=== PATIENT | female | born 1980 | race Caucasian/White ===

== ENCOUNTER 2018-03-10 02:38 | Emergency (ER) | payer OTHER, BC ==
--- NOTE | 2018-03-10 02:50 | EDM.PDOC ---
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 Review of systems: As per history of present illness and below otherwise all systems reviewed and negative. Past medical history: As per history of present illness and as reviewed below otherwise noncontributory. Surgical history: As per history of present illness and as reviewed below otherwise noncontributory. Social history: No reported history of drug or alcohol abuse. Family history: As per history of present illness and as reviewed below otherwise noncontributory. Physical exam: HEENT: Small scalp hematoma noted frontal scalp laceration no step-off no depression, normocephalic, pupils reactive, negative for conjunctival pallor or scleral icterus, mucous membranes moist, throat clear, neck supple, nontender, trachea midline. Lungs: Clear to auscultation, breath sounds equal bilaterally, chest nontender. Heart: S1S2, regular, negative for clicks, rubs, or JVD. Abdomen: Soft, nondistended, nontender. Negative for masses or hepatosplenomegaly. Negative for costovertebral tenderness. Pelvis: Stable nontender. Genitourinary: Deferred. Rectal: Deferred. Extremities: Atraumatic, negative for cords or calf pain. Neurovascular unremarkable. Neuro: Awake, alert, oriented. Cranial nerves II through XII unremarkable. Cerebellum unremarkable. Motor and sensory unremarkable throughout. Exam nonfocal. Diagnostics: None Therapeutics: None Impression: #1 minor head injury with scalp hematoma Definitive disposition and diagnosis as appropriate pending reevaluation and review of above. 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: Musculoskeletal History: Reports: None Neurological History: Reports: None Psychiatric History: Reports: Anxiety, Depression Endocrine/Metabolic History: Reports: None Hematologic History: Reports: None Immunologic History: Reports: None Oncologic (Cancer) History: Reports: None Dermatologic History: Reports: None - Infectious Disease History Infectious Disease History: Reports: Chicken Pox - Past Surgical History Female Surgical History: Reports: Section Social & Family History - Family History Cardiac: Reports: CAD ED ROS GENERAL - Review of Systems Review Of Systems: ROS reveals no pertinent complaints other than HPI. ED EXAM, HEAD INJURY - Physical Exam Exam: See Below (The dictation) Departure - Departure Time of Disposition: 02:49 Disposition: Home, Self-Care 01 Condition: Good Clinical Impression: Head injury - Discharge Information Referrals: Charmaine Leach DO [Primary Care Provider] - Additional Instructions: The following information is given to patients seen in the emergency department who are being discharged to home. This information is to outline your options for follow-up care. We provide all patients seen in our emergency department with a follow-up referral. The need for follow-up, as well as the timing and circumstances, are variable depending upon the specifics of your emergency department visit. If you don't have a primary care physician on staff, we will provide you with a referral. We always advise you to contact your personal physician following an emergency department visit to inform them of the circumstance of the visit and for follow-up with them and/or the need for any referrals to a consulting specialist. The emergency department will also refer you to a specialist when appropriate. This referral assures that you have the opportunity for followup care with a specialist. All of these measure are taken in an effort to provide you with optimal care, which includes your followup. Under all circumstances we always encourage you to contact your private physician who remains a resource for coordinating your care. When calling for followup care, please make the office aware that this follow-up is from your recent emergency room visit. If for any reason you are refused follow-up, please contact the [facility] emergency department at and asked to speak to the emergency department charge angel Follow-up primary medical doctor and/or occupational medicine as needed as discussed and return as needed as discussed Motrin/Tylenol as directed. []
[2018-03-10 03:18] VITALS: BP 157/86
== END 2018-03-10 03:10 | disposition home or self-care (01) ==
LOC: MW.ED 02:38
DX: S09.90XA Unspecified injury of head, initial encounter (principal); S00.03XA Contusion of scalp, initial encounter; W22.8XXA Striking against or struck by other objects, initial encounter
CPT/HCPCS: 99283

== ENCOUNTER 2018-06-16 10:24 | Emergency (ER) | payer BC ==
[2018-06-16] MEDS ORDERED: Sodium Chloride 0.9% 1,000 ML IV ONE (10:27)
--- NOTE | 2018-06-16 10:27 | EDM.PDOC ---
ED HPI GENERAL MEDICAL PROBLEM - General Stated Complaint: AMB Time Seen by Provider: 06/16/18 10:26 Source of Information: Reports: Patient History Limitations: Reports: No Limitations - History of Present Illness INITIAL COMMENTS - FREE TEXT/NARRATIVE: HISTORY AND PHYSICAL: History of present illness: Patient is a 37-year-old female who presents to the emergency room today with complaints of syncopal episode. 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 She states she had been feeling well. She had finished smoking a cigarette in her bathroom and had started making her way back into the kitchen when she started to feel weak. Patient states that she had a strange "cool and tingling sensation" to her body and scalp. She informed her that "I don't feel right" and requested he call EMS. She had the urge to defecate and emesis, followed by syncope from standing height. She had fallen onto the kitchen floor. Her states that she immediately was talking after falling to the ground. Patient states that " it was foggy" immediately and directly after the syncopal event. She denies any urinary incontinence but did have a small streak of loose stool in her underwear. She currently denies any pain, headache, change in vision or dizziness. She denies any fever, chills, chest pain, shortness of breath or cough. Denies any GI or symptoms. Denies any chance of , Tubal ligation. Patient has a past medical history of hypertension, depression, and anxiety. Review of systems: As per history of present illness and below otherwise all systems reviewed and negative. Past medical history: As per history of present illness and as reviewed below otherwise noncontributory. Surgical history: As per history of present illness and as reviewed below otherwise noncontributory. Social history: No reported history of drug or alcohol abuse. Family history: As per history of present illness and as reviewed below otherwise noncontributory. Physical exam: General: Well-developed and well-nourished 37-year-old female. Alert and oriented. Nontoxic appearing and in no acute distress. HEENT: Atraumatic, normocephalic, pupils equal and reactive bilaterally, negative for conjunctival pallor or scleral icterus, mucous membranes moist, throat clear, neck supple, nontender, trachea midline. No drooling or trismus noted. No meningeal signs Lungs: Clear to auscultation, breath sounds equal bilaterally, chest nontender. Heart: S1S2, regular rate and rhythm without overt murmur Abdomen: Soft, nondistended, nontender. Negative for masses or hepatosplenomegaly. Negative for costovertebral tenderness. Pelvis: Stable nontender. Genitourinary: Deferred. Rectal: Deferred. Skin: Intact, warm, dry. No lesions or rashes noted. Extremities: Atraumatic, negative for cords or calf pain. Neurovascular unremarkable. C-spine/Back: No pinpoint vertebral tenderness upon palpation. No crepitus, step -offs or obvious deformities. Patient is ambulatory with an even and steady gait. Eyes any numbness or tingling to her distal extremities. Neuro: Awake, alert, oriented. Cranial nerves II through XII unremarkable. Cerebellum unremarkable. Motor and sensory unremarkable throughout. Exam nonfocal. Notes: Patient is alert and oriented. She is agreeable to performing routine lab work along with the head CT. She currently denies any pain or symptoms at this time. Signs are stable. We'll continue to monitor. To returning to the room after her CT scan she does state she has a dull headache and mild nausea. Medications ordered at this time. Labs show that her potassium is 3.0. Patient was seen earlier this month and did have a potassium of 3.1 at this time. I did give her 40 mEq of K-Dur while here. We discussed the need for appropriate follow-up as her lisinopril/HCTZ medication may be causing her potassium depletion. Head CT shows no acute intracranial abnormalities. Reviewing her past visit in the ER a couple days ago, she was seen for palpitations and chest pain. At that time she was suggested to get a Holter/glass carrier as an outpatient. We did discuss the need for follow-up for not only her low potassium but her other health problems. She has denied any chest pain or palpitations while here in the emergency room. She states "this is been fine". Patient will be discharged to home with her prescription. We discussed signs and symptoms that would prompt her to return to the emergency room. She voices understanding and is agreeable to plan of care. Denies any further questions or concerns at this time. Diagnostics: CBC, CMP, UA, hCGU, EKG, Head CT Therapeutics: IV fluid, Toradol, Zofran Prescription: K-Dur (#20) Impression: Syncope Hypokalemia Plan: 1. Please take the remainder of the day to rest. Drink plenty of fluids. Small frequent meals. 2. Your potassium was low today. I did give you a potassium supplement able to be re-evaluated by her primary care provider. Your lisinopril/HCTZ medication may be causing the low potassium level. This may need to be adjusted or the may need to be placed on potassium replacement (per your primary care provider). Please make an appointment next week for follow-up care. 3. At your last visit they had recommended you get a cardiac/Holter monitor. If you have not already please set this up with your primary care provider as we discussed. 4. Tylenol and/or ibuprofen as needed for pain management. 5. Return to the ED as needed and as discussed. Definitive disposition and diagnosis as appropriate pending reevaluation and review of above. Onset: Today Duration: Minutes: - Related Data Allergies Allergy/AdvReac Type Severity Reaction Status Date / Time No Known Allergies Allergy Verified 06/16/18 10:29 Home Meds: Home Meds Lisinopril/Hydrochlorothiazide [Lisinopril-HCTZ 10-12.5 MG] 1 tab PO DAILY 06/16 [History] hydrOXYzine HCl [hydrOXYzine] 25 mg PO Q8HR 06/16/18 [History] Past Medical History HEENT History: Reports: Impaired Vision Cardiovascular History: Reports: None Respiratory History: Reports: Other (See Below) Other Respiratory History: Bronchitis Gastrointestinal History: Reports: GERD Genitourinary History: Reports: None 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: Musculoskeletal History: Reports: None Neurological History: Reports: None Psychiatric History: Reports: Anxiety, Depression Endocrine/Metabolic History: Reports: None Hematologic History: Reports: None Immunologic History: Reports: None Oncologic (Cancer) History: Reports: None Dermatologic History: Reports: None - Infectious Disease History Infectious Disease History: Reports: Chicken Pox - Past Surgical History Head Surgeries/Procedures: Reports: None Female Surgical History: Reports: Section Social & Family History - Family History Family Medical History: Noncontributory Cardiac: Reports: CAD - Caffeine Use Caffeine Use: Reports: None ED ROS GENERAL - Review of Systems Review Of Systems: ROS reveals no pertinent complaints other than HPI. ED EXAM, GENERAL - Physical Exam Exam: See Below (See dictation) Course - Vital Signs Last Recorded V/S: Last Vital Signs Temp 97.1 F 06/16/18 10:32 Pulse 90 06/16/18 10:32 Resp 19 06/16/18 10:32 BP 115/75 06/16/18 10:32 Pulse Ox 98 06/16/18 10:32 - Orders/Labs/Meds Orders: Active Orders 24 hr Category Date Time Status EKG Documentation Completion [RC] STAT Care 06/16/18 10:27 Active Orthostatic Vital Signs [RC] ASDIRECTED Care 06/16/18 10:27 Active Head wo Cont [CT] Stat Exams 06/16/18 10:27 Taken Labs: Laboratory Tests 06/16/18 06/16/18 06/16/18 Range/Units 10:26 10:26 11:00 WBC 14.16 H (4.0-11.0) K/uL RBC 4.50 (4.30-5.90) M/uL Hgb 14.1 (12.0-16.0) g/dL Hct 39.5 (36.0-46.0) % MCV 87.8 (80.0-98.0) fL MCH 31.3 (27.0-32.0) pg MCHC 35.7 (31.0-37.0) g/dL RDW Std Deviation 40.7 (28.0-62.0) fl RDW Coeff of Solomon 13 (11.0-15.0) % Plt Count 329 (150-400) K/uL MPV 8.80 (7.40-12.00) fL Neut % (Auto) 61.2 (48.0-80.0) % Lymph % (Auto) 29.2 (16.0-40.0) % [place] % (Auto) 6.4 (0.0-15.0) % Eos % (Auto) 2.7 (0.0-7.0) % Baso % (Auto) 0.5 (0.0-1.5) % Neut # (Auto) 8.7 H (1.4-5.7) K/uL Lymph # (Auto) 4.1 H (0.6-2.4) K/uL [place] # (Auto) 0.9 H (0.0-0.8) K/uL Eos # (Auto) 0.4 (0.0-0.7) K/uL Baso # (Auto) 0.1 (0.0-0.1) K/uL Nucleated RBC % 0.0 /100WBC Nucleated RBCs # 0 K/uL Sodium 137 (136-145) mmol/L Potassium 3.0 L (3.5-5.1) mmol/L Chloride 102 (98-107) mmol/L Carbon Dioxide 26.3 (21.0-32.0) mmol/L BUN 11 (7.0-18.0) mg/dL Creatinine 0.9 (0.6-1.0) mg/dL Est Cr Clr Drug Dosing 69.00 mL/min Estimated GFR (MDRD) > 60.0 ml/min Glucose 134 H (74-106) mg/dL Calcium 9.2 (8.5-10.1) mg/dL Total Bilirubin 0.3 (0.2-1.0) mg/dL AST 13 L (15-37) IU/L ALT 35 (14-63) IU/L Alkaline Phosphatase 72 (46-116) U/L Total Protein 7.2 (6.4-8.2) g/dL Albumin 3.8 (3.4-5.0) g/dL Globulin 3.4 (2.0-3.5) g/dL Albumin/Globulin Ratio 1.1 L (1.3-2.8) Urine Color YELLOW Urine Appearance CLEAR Urine pH 6.0 (5.0-8.0) Ur Specific [place] 1.015 (1.001-1.035) Urine Protein NEGATIVE (NEGATIVE) mg/dL Urine Glucose (UA) NEGATIVE (NEGATIVE) mg/dL Urine Ketones NEGATIVE (NEGATIVE) mg/dL Urine Occult Blood NEGATIVE (NEGATIVE) Urine Nitrite NEGATIVE (NEGATIVE) Urine Bilirubin NEGATIVE (NEGATIVE) Urine Urobilinogen 0.2 (<2.0) EU/dL Ur Leukocyte Esterase NEGATIVE (NEGATIVE) Urine RBC 0-1 (0-2/HPF) Urine WBC 0-2 (0-5/HPF) Ur Epithelial Cells RARE (NONE-FEW) Urine Bacteria RARE (NEGATIVE) Urine HCG, Qual (NEGATIVE) 06/16/18 Range/Units 11:00 WBC (4.0-11.0) K/uL RBC (4.30-5.90) M/uL Hgb (12.0-16.0) g/dL Hct (36.0-46.0) % MCV (80.0-98.0) fL MCH (27.0-32.0) pg MCHC (31.0-37.0) g/dL RDW Std Deviation (28.0-62.0) fl RDW Coeff of Solomon (11.0-15.0) % Plt Count (150-400) K/uL MPV (7.40-12.00) fL Neut % (Auto) (48.0-80.0) % Lymph % (Auto) (16.0-40.0) % [place] % (Auto) (0.0-15.0) % Eos % (Auto) (0.0-7.0) % Baso % (Auto) (0.0-1.5) % Neut # (Auto) (1.4-5.7) K/uL Lymph # (Auto) (0.6-2.4) K/uL [place] # (Auto) (0.0-0.8) K/uL Eos # (Auto) (0.0-0.7) K/uL Baso # (Auto) (0.0-0.1) K/uL Nucleated RBC % /100WBC Nucleated RBCs # K/uL Sodium (136-145) mmol/L Potassium (3.5-5.1) mmol/L Chloride (98-107) mmol/L Carbon Dioxide (21.0-32.0) mmol/L BUN (7.0-18.0) mg/dL Creatinine (0.6-1.0) mg/dL Est Cr Clr Drug Dosing mL/min Estimated GFR (MDRD) ml/min Glucose (74-106) mg/dL Calcium (8.5-10.1) mg/dL Total Bilirubin (0.2-1.0) mg/dL AST (15-37) IU/L ALT (14-63) IU/L Alkaline Phosphatase (46-116) U/L Total Protein (6.4-8.2) g/dL Albumin (3.4-5.0) g/dL Globulin (2.0-3.5) g/dL Albumin/Globulin Ratio (1.3-2.8) Urine Color Urine Appearance Urine pH (5.0-8.0) Ur Specific [place] (1.001-1.035) Urine Protein (NEGATIVE) mg/dL Urine Glucose (UA) (NEGATIVE) mg/dL Urine Ketones (NEGATIVE) mg/dL Urine Occult Blood (NEGATIVE) Urine Nitrite (NEGATIVE) Urine Bilirubin (NEGATIVE) Urine Urobilinogen (<2.0) EU/dL Ur Leukocyte Esterase (NEGATIVE) Urine RBC (0-2/HPF) Urine WBC (0-5/HPF) Ur Epithelial Cells (NONE-FEW) Urine Bacteria (NEGATIVE) Urine HCG, Qual NEGATIVE (NEGATIVE) Meds: Medications Discontinued Medications Generic Name Dose Route Start Last Admin Trade Name Donavanq PRN Reason Stop Dose Admin Sodium Chloride 1,000 mls @ 999 mls/hr 06/16/18 10:27 06/16/18 10:30 Normal Saline IV 06/16/18 11:27 999 mls/hr STAT ONE Administration Ketorolac Tromethamine 30 mg 06/16/18 10:58 06/16/18 11:06 Toradol IVPUSH 06/16/18 10:59 30 mg ONETIME ONE Administration Ondansetron HCl 4 mg 06/16/18 10:58 Zofran IVPUSH 06/16/18 10:59 ONETIME ONE Potassium Chloride 40 meq 06/16/18 11:12 06/16/18 11:19 Klor-Con M20 PO 06/16/18 11:13 40 meq ONETIME ONE Administration Departure - Departure Time of Disposition: 11:43 Disposition: Home, Self-Care 01 Clinical Impression: Hypokalemia Syncope Qualifiers: Syncope type: unspecified Qualified Code(s): R55 - Syncope and collapse - Discharge Information Instructions: Hypokalemia, Syncope, [id number] Referrals: PCP,None [Primary Care Provider] - Additional Instructions: The following information is given to patients seen in the emergency department who are being discharged to home. This information is to outline your options for follow-up care. We provide all patients seen in our emergency department with a follow-up referral. The need for follow-up, as well as the timing and circumstances, are variable depending upon the specifics of your emergency department visit. If you don't have a primary care physician on staff, we will provide you with a referral. We always advise you to contact your personal physician following an emergency department visit to inform them of the circumstance of the visit and for follow-up with them and/or the need for any referrals to a consulting specialist. The emergency department will also refer you to a specialist when appropriate. This referral assures that you have the opportunity for follow-up care with a specialist. All of these measure are taken in an effort to provide you with optimal care, which includes your follow-up. Under all circumstances we always encourage you to contact your private physician who remains a resource for coordinating your care. When calling for follow-up care, please make the office aware that this follow-up is from your recent emergency room visit. If for any reason you are refused follow-up, please contact the [facility] Emergency Department at and asked to speak to the emergency department charge nurse. [facility] [address] [place] [id number] [facility] [address] [place] [address] 1. Please take the remainder of the day to rest. Drink plenty of fluids. Small frequent meals. 2. Your potassium was low today. I did give you a potassium supplement able to be re-evaluated by her primary care provider. Your lisinopril/HCTZ medication may be causing the low potassium level. This may need to be adjusted or the may need to be placed on potassium replacement (per your primary care provider). Please make an appointment next week for follow-up care. 3. At your last visit they had recommended you get a cardiac/Holter monitor. If you have not already please set this up with your primary care provider as we discussed. 4. Tylenol and/or ibuprofen as needed for pain management. 5. Return to the ED as needed and as discussed. - My Orders Last 24 Hours: My Active Orders 06/16/18 10:27 EKG Documentation Completion [RC] STAT Orthostatic Vital Signs [RC] ASDIRECTED Head wo Cont [CT] Stat - Assessment/Plan Last 24 Hours: My Active Orders 06/16/18 10:27 EKG Documentation Completion [RC] STAT Orthostatic Vital Signs [RC] ASDIRECTED Head wo Cont [CT] Stat
[2018-06-16 10:33] VITALS: BP 115/75
[2018-06-16] MEDS ORDERED: Ketorolac 30 MG/ML SDV IVPUSH ONE (10:58)
[2018-06-16] MEDS ORDERED: Ondansetron 4 MG/2 ML SDV IVPUSH ONE (10:58)
[2018-06-16 11:00] LABS: CHLORIDE,CL 102 mmol/L (98-107); SODIUM,NA 137 mmol/L (136-145)
[2018-06-16] MEDS ORDERED: Potassium Chloride 20 MEQ Tab.ER PO ONE (11:12)
--- NOTE | 2018-06-18 09:46 | CT ---
EXAM DATE: 06/16/18 PATIENT'S AGE: 37 Patient: RED ALARCON Facility: [place], [place] Site . Site : [id number] Study: CT Head [id number]/[id number] 10:57:22 AM Ordering Physician: Doctor Granados Final Report: INDICATION: Dizziness. TECHNIQUE: [place] CT of the head without contrast. FINDINGS: Normal brain parenchymal morphology. No intracranial hemorrhage, focal edema, mass effect, or fracture. No midline shift. No abnormal ventricular dilatation. Pineal gland calcifications Normal calvarium and skull base. Visualized paranasal sinuses and mastoid air cells are clear. Visualized orbits are unremarkable. IMPRESSION: 1. No acute intracranial abnormality. 2. Normal brain parenchymal morphology Please note that all CT scans at this facility use dose modulation, iterative reconstruction, and/or weight-based dosing when appropriate to reduce radiation dose to as low as reasonably achievable. Dictated by Ken Mejias MD @ Jun 16 2018 10:58AM (Electronic Signature) Report Signed by Proxy. MTDD
== END 2018-06-16 12:05 | disposition home or self-care (01) ==
LOC: MW.ED 10:24
DX: R55 Syncope and collapse (principal); E87.6 Hypokalemia; Z79.899 Other long term (current) drug therapy
CPT/HCPCS: 36415; 70450; 80053; 81001; 81025; 85025; 93005; 96361; 96374; 96375; 99285; A9270; J1885; J7040

== ENCOUNTER 2021-09-13 13:31 | Emergency (ER) | payer SELFPAY ==
[2021-09-13] MEDS ORDERED: Ondansetron 4 MG Tab.DIS ONE (13:42)
[2021-09-13] MEDS ORDERED: Ondansetron 4 MG Tab.DIS PO ONE (13:45)
--- NOTE | 2021-09-13 13:57 | EDM.PDOC ---
ED HPI GENERAL MEDICAL PROBLEM - General Chief Complaint: Abdominal Pain Stated Complaint: ABDOMINAL PAIN,VOMMITNG Time Seen by Provider: 09/13/21 13:55 Source of Information: Reports: Patient - History of Present Illness INITIAL COMMENTS - FREE TEXT/NARRATIVE: Presents complaining of nausea vomiting and diarrhea since June. It is worse over the last several days to week. Patient denies any recent antibiotics. She denies any recent sick contacts or travel outside the country. No undercooked foods. She states she has getting over cough and cold that has been going around at work. Patient has not seen her doctor for this as of yet. She is complaining of diffuse 6 out of 10 abdominal pain. 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: NSAIDS, Other (see below) Other Treatments SERVICE INSPECTOR: sudafed abdomen Pain Score (Numeric/FACES): 6 - Related Data Allergies Allergy/AdvReac Type Severity Reaction Status Date / Time No Known Allergies Allergy Verified 09/13/21 13:38 Home Meds: Home Meds LORazepam [Ativan] 0.5 mg PO Q12H PRN 09/13/21 [History] Ondansetron [Zofran ODT] 4 mg PO Q6H PRN #10 tab.dis 09/13/21 [Rx] Past Medical History HEENT History: Reports: Impaired Vision Cardiovascular History: Reports: None Respiratory History: Reports: Other (See Below) Other Respiratory History: Bronchitis Gastrointestinal History: Reports: GERD Genitourinary History: Reports: None MICA SPREADER History: Reports: Musculoskeletal History: Reports: None Neurological History: Reports: None Psychiatric History: Reports: Anxiety, Depression Endocrine/Metabolic History: Reports: None Hematologic History: Reports: None Immunologic History: Reports: None Oncologic (Cancer) History: Reports: None Dermatologic History: Reports: None - Infectious Disease History Infectious Disease History: Reports: Chicken Pox - Past Surgical History Head Surgeries/Procedures: Reports: None HEENT Surgical History: Reports: None Cardiovascular Surgical History: Reports: None Respiratory Surgical History: Reports: None GI Surgical History: Reports: None Female Surgical History: Reports: Section Endocrine Surgical History: Reports: None Neurological Surgical History: Reports: None Musculoskeletal Surgical History: Reports: None Oncologic Surgical History: Reports: None Dermatological Surgical History: Reports: None Social & Family History - Family History Family Medical History: No Pertinent Family History Cardiac: Reports: CAD - Tobacco Use Tobacco Use Status *Q: Current Every Day Tobacco User Years of Tobacco use: 1 Packs/Tins Daily: 1 - Caffeine Use Caffeine Use: Reports: Coffee - Recreational Drug Use Recreational Drug Use: Yes Drug Use in Last 12 Months: Yes Recreational Drug Type: Reports: Cocaine, Marijuana/Hashish Recreational Drug Use Frequency: Weekly ED ROS GENERAL - Review of Systems Review Of Systems: See Below ED EXAM, GENERAL - Physical Exam Exam: See Below Free Text/Narrative:: CONSTITUTIONAL: well appearing in no acute distress SKIN: dry, and intact without rash HENT: Normocephalic, atraumatic, NECK: normal range of motion PULMONARY: normal chest rise and fall, no respiratory distress or stridor NEUROLOGIC: normal speech, moves all extremities, grossly non-focal GI: Soft, mild epigastric and midline mid abdominal tenderness. No guarding or rebound or rigidity MUSCULOSKELETAL: no gross deformities, atraumatic PSYCHIATRIC: normal mood and affect Course - Vital Signs Text/Narrative:: Gastroenteritis, foodborne illness, CHF, early small bowel obstruction, acute cholecystitis, other She presents with vomiting and diarrhea. Patient's had copious amounts of diarrhea she states. She has a mild leukocytosis but the laboratory testing is otherwise relatively reassuring. Abdomen does have some mild tenderness but is otherwise soft and benign. Patient will be given Zofran and told to take Imodium at home and she already has a follow-up appoint with her primary care doctor tomorrow at 10 AM she states Last Recorded V/S: Last Vital Signs Temp 36.6 C 09/13/21 13:39 Pulse 89 09/13/21 13:39 Resp 18 09/13/21 13:39 BP 121/82 09/13/21 13:39 Pulse Ox 95 09/13/21 13:39 - Orders/Labs/Meds Orders: Active Orders 24 hr Category Date Time Status COVID-19/FLU A+B [MOLEC] Stat Lab 09/13/21 14:21 Received Labs: Laboratory Tests 09/13/21 09/13/21 09/13/21 Range/Units 13:51 13:51 14:00 WBC 13.05 H (4.0-11.0) K/uL RBC 4.64 (4.30-5.90) M/uL Hgb 14.2 (12.0-16.0) g/dL Hct 41.4 (36.0-46.0) % MCV 89.2 (80.0-98.0) fL MCH 30.6 (27.0-32.0) pg MCHC 34.3 (31.0-37.0) g/dL RDW Std Deviation 43.2 (28.0-62.0) fl RDW Coeff of Solomon 13 (11.0-15.0) % Plt Count 418 H (150-400) K/uL MPV 8.80 (7.40-12.00) fL Neut % (Auto) 83.6 H (48.0-80.0) % Lymph % (Auto) 10.3 L (16.0-40.0) % [place] % (Auto) 4.8 (0.0-15.0) % Eos % (Auto) 1.1 (0.0-7.0) % Baso % (Auto) 0.2 (0.0-1.5) % Neut # (Auto) 10.9 H (1.4-5.7) K/uL Lymph # (Auto) 1.4 (0.6-2.4) K/uL [place] # (Auto) 0.6 (0.0-0.8) K/uL Eos # (Auto) 0.2 (0.0-0.7) K/uL Baso # (Auto) 0.0 (0.0-0.1) K/uL Nucleated RBC % 0.0 /100WBC Nucleated RBCs # 0 K/uL Sodium (136-145) mmol/L Potassium (3.5-5.1) mmol/L Chloride (98-107) mmol/L Carbon Dioxide (21.0-32.0) mmol/L BUN (7.0-18.0) mg/dL Creatinine (0.6-1.0) mg/dL Est Cr Clr Drug Dosing mL/min Estimated GFR (MDRD) ml/min Glucose (74-106) mg/dL Calcium (8.5-10.1) mg/dL Total Bilirubin (0.2-1.0) mg/dL AST (15-37) IU/L ALT (14-63) IU/L Total Protein (6.4-8.2) g/dL Albumin (3.4-5.0) g/dL Globulin (2.6-4.0) g/dL Albumin/Globulin Ratio (0.9-1.6) Lipase (73-393) U/L Urine Color YELLOW Urine Appearance CLEAR Urine pH 6.0 (5.0-8.0) Ur Specific [place] 1.025 (1.001-1.035) Urine Protein NEGATIVE (NEGATIVE) mg/dL Urine Glucose (UA) NEGATIVE (NEGATIVE) mg/dL Urine Ketones NEGATIVE (NEGATIVE) mg/dL Urine Occult Blood NEGATIVE (NEGATIVE) Urine Nitrite NEGATIVE (NEGATIVE) Urine Bilirubin NEGATIVE (NEGATIVE) Urine Urobilinogen 0.2 (<2.0) EU/dL Ur Leukocyte Esterase NEGATIVE (NEGATIVE) Urine HCG, Qual NEGATIVE (NEGATIVE) 09/13/21 Range/Units 14:00 WBC (4.0-11.0) K/uL RBC (4.30-5.90) M/uL Hgb (12.0-16.0) g/dL Hct (36.0-46.0) % MCV (80.0-98.0) fL MCH (27.0-32.0) pg MCHC (31.0-37.0) g/dL RDW Std Deviation (28.0-62.0) fl RDW Coeff of Solomon (11.0-15.0) % Plt Count (150-400) K/uL MPV (7.40-12.00) fL Neut % (Auto) (48.0-80.0) % Lymph % (Auto) (16.0-40.0) % [place] % (Auto) (0.0-15.0) % Eos % (Auto) (0.0-7.0) % Baso % (Auto) (0.0-1.5) % Neut # (Auto) (1.4-5.7) K/uL Lymph # (Auto) (0.6-2.4) K/uL [place] # (Auto) (0.0-0.8) K/uL Eos # (Auto) (0.0-0.7) K/uL Baso # (Auto) (0.0-0.1) K/uL Nucleated RBC % /100WBC Nucleated RBCs # K/uL Sodium 139 (136-145) mmol/L Potassium 3.4 L (3.5-5.1) mmol/L Chloride 105 (98-107) mmol/L Carbon Dioxide 26.4 (21.0-32.0) mmol/L BUN 17 (7.0-18.0) mg/dL Creatinine 0.7 (0.6-1.0) mg/dL Est Cr Clr Drug Dosing 81.42 mL/min Estimated GFR (MDRD) > 60.0 ml/min Glucose 89 (74-106) mg/dL Calcium 9.0 (8.5-10.1) mg/dL Total Bilirubin 0.4 (0.2-1.0) mg/dL AST 12 L (15-37) IU/L ALT 28 (14-63) IU/L Total Protein 7.6 (6.4-8.2) g/dL Albumin 3.7 (3.4-5.0) g/dL Globulin 3.9 (2.6-4.0) g/dL Albumin/Globulin Ratio 0.9 (0.9-1.6) Lipase 88 (73-393) U/L Urine Color Urine Appearance Urine pH (5.0-8.0) Ur Specific [place] (1.001-1.035) Urine Protein (NEGATIVE) mg/dL Urine Glucose (UA) (NEGATIVE) mg/dL Urine Ketones (NEGATIVE) mg/dL Urine Occult Blood (NEGATIVE) Urine Nitrite (NEGATIVE) Urine Bilirubin (NEGATIVE) Urine Urobilinogen (<2.0) EU/dL Ur Leukocyte Esterase (NEGATIVE) Urine HCG, Qual (NEGATIVE) Meds: Medications Discontinued Medications Generic Name Dose Route Start Last Admin Trade Name Caio PRN Reason Stop Dose Admin Loperamide HCl 4 mg 09/13/21 14:03 09/13/21 14:10 Loperamide 2 Mg Cap PO 09/13/21 14:04 4 mg NOW STA Administration Ondansetron HCl 4 mg 09/13/21 13:45 09/13/21 13:46 Ondansetron 4 Mg Tab.Dis PO 09/13/21 13:46 4 mg ONETIME ONE Administration Ondansetron HCl Confirm 09/13/21 13:42 09/13/21 14:14 Ondansetron 4 Mg Tab.Dis Administered 09/13/21 13:43 Not Given Dose 4 mg .ROUTE .STK-MED ONE Departure - Departure Time of Disposition: 15:09 Disposition: Home, Self-Care 01 Condition: Good Clinical Impression: Diarrhea - Discharge Information Instructions: Diarrhea, Adult Forms: ED Department Discharge Additional Instructions: Zofran as prescribed for vomiting and Imodium [id number] for diarrhea. Return for lack of urination, inability to tolerate fluids, increasing abdominal pain, change or worsening condition. Follow-up with your primary care doctor tomorrow as scheduled for reevaluation. Sepsis Event Note (ED) - Evaluation Sepsis Screening Result: No Definite Risk - Focused Exam Vital Signs: Vital Signs Temp Pulse Resp BP Pulse Ox 09/13/21 13:39 36.6 C 89 18 121/82 95 - My Orders Last 24 Hours: My Active Orders 09/13/21 14:21 COVID-19/FLU A+B [MOLEC] Stat - Assessment/Plan Last 24 Hours: My Active Orders 09/13/21 14:21 COVID-19/FLU A+B [MOLEC] Stat
[2021-09-13] MEDS ORDERED: Loperamide 2 MG Cap PO STA (14:03)
[2021-09-13 14:57] LABS: BLOOD UREA NITROGEN,BUN 17 mg/dL (7.0-18.0); CARBON DIOXIDE,CO2 26.4 mmol/L (21.0-32.0); CHLORIDE,CL 105 mmol/L (98-107); GLUCOSE RANDOM 89 mg/dL (74-106); LIPASE 88 U/L (73-393); POTASSIUM,K 3.4 mmol/L (3.5-5.1); SODIUM,NA 139 mmol/L (136-145)
[2021-09-13 15:13] LABS: CORONAVIRUS COVID-19 NAA NEGATIVE (NEGATIVE); INFLUENZA A NAA NEGATIVE (NEGATIVE); INFLUENZA B NAA NEGATIVE (NEGATIVE)
[2021-09-13 15:25] VITALS: BP 127/69; PULSE 81
== END 2021-09-13 15:26 | disposition home or self-care (01) ==
LOC: MW.ED 13:31
DX: R19.7 Diarrhea, unspecified (principal); Z72.0 Tobacco use; Z20.822 Contact with and (suspected) exposure to COVID-19
CPT/HCPCS: 0240U; 36415; 80053; 81003; 81025; 83690; 85025; 99284; A9270

== ENCOUNTER 2022-08-28 13:33 | Emergency (ER) | payer BC ==
[2022-08-28] MEDS ORDERED: Sodium Chloride 0.9% 10 ML Syringe FLUSH PRN (13:59)
[2022-08-28] MEDS ORDERED: Sodium Chloride 0.9% 2.5 ML Syringe FLUSH PRN (13:59)
[2022-08-28 14:57] LABS: CARBON DIOXIDE,CO2 24.1 mmol/L (21.0-32.0); POTASSIUM,K 3.5 mmol/L (3.5-5.1)
[2022-08-28 15:42] VITALS: BP 112/54; PULSE 88
== END 2022-08-28 15:40 | disposition home or self-care (01) ==
LOC: MW.ED 13:33
DX: I10 Essential (primary) hypertension (principal); Z79.899 Other long term (current) drug therapy
CPT/HCPCS: 36415; 80053; 84484; 85025; 93005; 99285; J3490

== ENCOUNTER 2023-07-15 12:54 | Emergency (ER) | payer BC ==
[2023-07-15] MEDS ORDERED: Ondansetron 4 MG/2 ML SDV IVPUSH ONE (13:31)
[2023-07-15] MEDS ORDERED: Sodium Chloride 0.9% 1,000 ML IV ONE (13:31)
[2023-07-15] MEDS ORDERED: Morphine 4 MG/ML Syringe IVPUSH ONE (13:31)
[2023-07-15] MEDS ORDERED: Ketorolac 30 MG/ML SDV IVPUSH ONE (13:31)
[2023-07-15 14:00] LABS: BASOPHILS ABSOLUTE AUTO 0.08 K/uL (0.00-0.20); BASOPHILS PERCENT AUTO 0.6 % (0.0-1.0); EOSINOPHILS ABSOLUTE AUTO 0.15 K/uL (0.00-0.45); EOSINOPHILS PERCENT AUTO 1.1 % (0.0-6.0); HEMATOCRIT 35.5 % (37.0-47.0); HEMOGLOBIN 12.7 g/dL (12.0-16.0); IMMATURE GRAN ABSOLUTE AUTO 0.05 K/uL (0.00-0.05); IMMATURE GRAN PERCENT AUTO 0.4 % (0.0-0.4); LYMPHOCYTES ABSOLUTE AUTO 2.21 K/uL (1.00-4.80); LYMPHOCYTES PERCENT AUTO 16.7 % (24.0-44.0); MEAN CORPUSCULAR HEMOGLOBIN 31.3 pg (28.0-32.0); MEAN CORPUSCULAR HGB CONC 35.8 g/dL (32.0-36.0); MEAN CORPUSCULAR VOLUME 87.4 fL (83.0-99.0); MEAN PLATELET VOLUME 8.1 fL (9.4-12.3); MONOCYTES ABSOLUTE AUTO 0.74 K/uL (0.00-0.80); MONOCYTES PERCENT AUTO 5.6 % (0.0-8.0); NEUTROPHILS ABSOLUTE AUTO 9.97 K/uL (1.80-7.70); NEUTROPHILS PERCENT AUTO 75.6 % (41.0-71.0); PLATELET COUNT,PLT 399 K/uL (150-400); RED BLOOD CELL COUNT 4.06 M/uL (4.10-5.30)
[2023-07-15 14:28] LABS: ALBUMIN 3.5 g/dL (3.4-5.0); BILIRUBIN TOTAL 0.2 mg/dL (0.2-1.0); C-REACTIVE PROTEIN 1.24 mg/dL (<0.3); CALCIUM 8.5 mg/dL (8.5-10.1); CARBON DIOXIDE,CO2 25.6 mmol/L (21.0-32.0); CREATININE 0.8 mg/dL (0.6-1.0); EST CRCL DRUG DOSING (CG) 69.83 mL/min; MAGNESIUM 1.6 mg/dL (1.8-2.4); POTASSIUM,K 3.3 mmol/L (3.5-5.1)
[2023-07-15 14:43] LABS: APPEARANCE,URINE CLEAR; BILIRUBIN,URINE NEGATIVE (NEGATIVE); COLOR,URINE YELLOW; GLUCOSE,URINE NEGATIVE (NEGATIVE); KETONES,URINE NEGATIVE (NEGATIVE); LEUKOCYTE ESTERASE,URINE NEGATIVE (NEGATIVE); NITRITE,URINE POSITIVE (NEGATIVE); OCCULT BLOOD,URINE NEGATIVE (NEGATIVE); PH,URINE 6.5 (5.0-8.0); PROTEIN,URINE NEGATIVE (NEGATIVE); UROBILINOGEN,URINE 0.2 EU/dL (<2.0)
[2023-07-15 14:51] LABS: EPITHELIAL CELLS,URINE RARE (NONE-FEW); RBC,URINE 0-1 (0-2/HPF); WBC,URINE 0-1 (0-5/HPF)
[2023-07-15 14:52] LABS: BACTERIA,URINE RARE (NEGATIVE)
[2023-07-15] MEDS ORDERED: Iopamidol 755 MG/ML 500 ML Multipack Bottle IVPUSH ONE (15:12)
[2023-07-15] MEDS ORDERED: Piperacillin/Tazobactam 4.5 GM in Sodium Chloride 0.9% 100 ML IV ONE (15:34)
[2023-07-15] MEDS ORDERED: Acetaminophen/oxyCODONE 325-5 MG Tab PO ONE (15:44)
[2023-07-15 16:10] VITALS: BP 128/72; PULSE 88
== END 2023-07-15 16:10 | disposition home or self-care (01) ==
LOC: MW.ED 12:54
DX: K57.32 Diverticulitis of large intestine without perforation or abscess without bleeding (principal); I10 Essential (primary) hypertension; Z86.16 Personal history of COVID-19; Z91.040 Latex allergy status; Z79.899 Other long term (current) drug therapy
CPT/HCPCS: 36415; 74177; 80053; 81001; 83690; 83735; 84703; 85025; 86140; 96361; 96365; 96375; 99284; A9270; J1885; J2270; J2405; J2543; J3490; J7030; Q9967

== ENCOUNTER 2023-07-17 16:44 | Emergency (ER) | payer BC ==
[2023-07-17] MEDS ORDERED: Ondansetron 4 MG/2 ML SDV ONE (16:56)
[2023-07-17] MEDS ORDERED: Ondansetron 4 MG/2 ML SDV IVPUSH ONE ×2 (17:00→17:06)
[2023-07-17] MEDS ORDERED: Sodium Chloride 0.9% 1,000 ML IV ONE ×2 (17:00→18:11)
[2023-07-17] MEDS ORDERED: Acetaminophen 500 MG Tab PO ONE (17:05)
[2023-07-17] MEDS ORDERED: Ketorolac 30 MG/ML SDV IVPUSH ONE (17:05)
[2023-07-17 17:12] LABS: BASOPHILS ABSOLUTE AUTO 0.05 K/uL (0.00-0.20); BASOPHILS PERCENT AUTO 0.4 % (0.0-1.0); EOSINOPHILS ABSOLUTE AUTO 0.03 K/uL (0.00-0.45); EOSINOPHILS PERCENT AUTO 0.3 % (0.0-6.0); HEMATOCRIT 35.7 % (37.0-47.0); HEMOGLOBIN 12.8 g/dL (12.0-16.0); IMMATURE GRAN ABSOLUTE AUTO 0.04 K/uL (0.00-0.05); IMMATURE GRAN PERCENT AUTO 0.4 % (0.0-0.4); LYMPHOCYTES ABSOLUTE AUTO 0.57 K/uL (1.00-4.80); LYMPHOCYTES PERCENT AUTO 5.1 % (24.0-44.0); MEAN CORPUSCULAR HEMOGLOBIN 31.2 pg (28.0-32.0); MEAN CORPUSCULAR HGB CONC 35.9 g/dL (32.0-36.0); MEAN CORPUSCULAR VOLUME 87.1 fL (83.0-99.0); MEAN PLATELET VOLUME 8.2 fL (9.4-12.3); MONOCYTES ABSOLUTE AUTO 0.62 K/uL (0.00-0.80); MONOCYTES PERCENT AUTO 5.5 % (0.0-8.0); NEUTROPHILS ABSOLUTE AUTO 9.94 K/uL (1.80-7.70); NEUTROPHILS PERCENT AUTO 88.3 % (41.0-71.0); PLATELET COUNT,PLT 317 K/uL (150-400); WHITE BLOOD CELL COUNT,WBC 11.25 K/uL (3.9-11.3)
[2023-07-17 17:37] LABS: A/G RATIO 0.9 (0.9-1.6); ALANINE AMINOTRANSFERASE,ALT 84 IU/L (14-63); ALBUMIN 3.8 g/dL (3.4-5.0); ALKALINE PHOSPHATASE 89 U/L (46-116); ASPARTATE AMNIOTRANSFERASE,AST 50 IU/L (15-37); BILIRUBIN TOTAL 0.4 mg/dL (0.2-1.0); BLOOD UREA NITROGEN,BUN 5 mg/dL (7.0-18.0); CALCIUM 8.9 mg/dL (8.5-10.1); CARBON DIOXIDE,CO2 22.7 mmol/L (21.0-32.0); CHLORIDE,CL 97 mmol/L (98-107); CREATININE 0.8 mg/dL (0.6-1.0); EST CRCL DRUG DOSING (CG) 79.91 mL/min; GLUCOSE RANDOM 98 mg/dL (74-106); MAGNESIUM 1.7 mg/dL (1.8-2.4); POTASSIUM,K 3.2 mmol/L (3.5-5.1); PROTEIN TOTAL,TP 7.8 g/dL (6.4-8.2); SODIUM,NA 132 mmol/L (136-145)
[2023-07-17 17:38] LABS: ESTIMATED GFR 95 mL/min (>60); ETHANOL BLOOD MEDICAL < 3.0 mg/dL
[2023-07-17 17:42] LABS: LACTIC ACID 0.9 mmol/L (0.4-2.0)
[2023-07-17 17:45] LABS: APPEARANCE,URINE CLEAR; BILIRUBIN,URINE NEGATIVE (NEGATIVE); GLUCOSE,URINE NEGATIVE (NEGATIVE); KETONES,URINE 15 mg/dL (NEGATIVE); LEUKOCYTE ESTERASE,URINE NEGATIVE (NEGATIVE); NITRITE,URINE NEGATIVE (NEGATIVE); OCCULT BLOOD,URINE NEGATIVE (NEGATIVE); PH,URINE 5.5 (5.0-8.0); PROTEIN,URINE NEGATIVE (NEGATIVE); UROBILINOGEN,URINE 0.2 EU/dL (<2.0)
[2023-07-17 17:48] LABS: AMPHETAMINES SCREEN, URINE NEGATIVE (CUTOFF=500); BARBITURATE SCREEN,URINE NEGATIVE (CUTOFF=200); BENZODIAZEPINES SCREEN,URINE NEGATIVE (CUTOFF=150); BUPRENORPHINE SCREEN,URINE NEGATIVE (CUTOFF=10); METHADONE SCREEN, URINE NEGATIVE (CUTOFF=200); METHAMPHETAMINES SCREEN, URINE NEGATIVE (CUTOFF=500); OXYCODONE SCREEN,URINE PRESUMPTIVE POSITIVE (CUT0FF=100); PCP SCREEN,URINE NEGATIVE (CUTOFF=25); PROPOXYPHENE SCREEN,URINE NEGATIVE (CUTOFF=300); THC SCREEN,URINE 20 NG/ML NEGATIVE (CUTOFF=50)
[2023-07-17 17:49] LABS: COLOR,URINE STRAW
[2023-07-17] MEDS ORDERED: Potassium Chloride 20 MEQ Tab.ER PO ONE (18:11)
[2023-07-17] MEDS ORDERED: Acetaminophen/oxyCODONE 325-5 MG Tab PO ONE (18:11)
[2023-07-17] MEDS ORDERED: Morphine 4 MG/ML Syringe IVPUSH ONE (18:13)
[2023-07-17 18:24] VITALS: BP 134/76; PULSE 113
== END 2023-07-17 19:05 | disposition left against medical advice (07) ==
LOC: MW.ED 16:44
DX: K57.92 Diverticulitis of intestine, part unspecified, without perforation or abscess without bleeding (principal); I10 Essential (primary) hypertension; Z86.16 Personal history of COVID-19; Z79.899 Other long term (current) drug therapy; Z91.040 Latex allergy status
CPT/HCPCS: 36415; 80053; 80305; 80307; 81003; 83605; 83735; 85025; 96361; 96374; 96375; 99284; A9270; J1885; J2405; J7030

== ENCOUNTER 2023-12-31 12:33 | Emergency (ER) | payer BC ==
[2023-12-31] MEDS: Sodium Chloride 0.9% 1,000 ML IV ONE (14:02)
[2024-01-01 11:13] VITALS: BP 133/70; PULSE 79
== END 2023-12-31 15:40 | disposition home or self-care (01) ==
LOC: MW.ED 12:33
DX: R53.83 Other fatigue (principal); I10 Essential (primary) hypertension; Z79.899 Other long term (current) drug therapy; Z91.040 Latex allergy status; Z75.8 Other problems related to medical facilities and other health care
CPT/HCPCS: 71045; 93005; 96360; 99283; J7030; 93010; 99282

== ENCOUNTER 2024-09-20 14:28 | Emergency (ER) | payer BC ==
[2024-09-20 14:59] LABS: BASOPHILS ABSOLUTE AUTO 0.08 K/uL (0.00-0.20); BASOPHILS PERCENT AUTO 0.8 % (0.0-1.0); EOSINOPHILS ABSOLUTE AUTO 0.19 K/uL (0.00-0.45); HEMATOCRIT 41.3 % (37.0-47.0); HEMOGLOBIN 14.5 g/dL (12.0-16.0); IMMATURE GRAN ABSOLUTE AUTO 0.02 K/uL (0.00-0.05); IMMATURE GRAN PERCENT AUTO 0.2 % (0.0-0.4); LYMPHOCYTES ABSOLUTE AUTO 4.38 K/uL (1.00-4.80); MEAN CORPUSCULAR HEMOGLOBIN 31.7 pg (28.0-32.0); MEAN CORPUSCULAR HGB CONC 35.1 g/dL (32.0-36.0); MEAN CORPUSCULAR VOLUME 90.2 fL (83.0-99.0); MEAN PLATELET VOLUME 8.8 fL (9.4-12.3); MONOCYTES ABSOLUTE AUTO 0.68 K/uL (0.00-0.80); MONOCYTES PERCENT AUTO 7.1 % (0.0-8.0); NEUTROPHILS ABSOLUTE AUTO 4.18 K/uL (1.80-7.70); NEUTROPHILS PERCENT AUTO 43.9 % (41.0-71.0); PLATELET COUNT,PLT 390 K/uL (150-400); RED BLOOD CELL COUNT 4.58 M/uL (4.10-5.30); WHITE BLOOD CELL COUNT,WBC 9.53 K/uL (3.9-11.3)
[2024-09-20 15:11] LABS: INR 0.99 (0.86-1.11); PTT,PARTIAL THROMBOPLSTIN TIME 25.6 SEC (23.9-30.7)
[2024-09-20 15:14] LABS: A/G RATIO 1.1 (0.9-1.6); ALANINE AMINOTRANSFERASE,ALT 37 IU/L (14-63); ALBUMIN 4.2 g/dL (3.4-5.0); ALKALINE PHOSPHATASE 76 U/L (46-116); ASPARTATE AMNIOTRANSFERASE,AST 19 IU/L (15-37); BILIRUBIN TOTAL 0.4 mg/dL (0.2-1.0); BLOOD UREA NITROGEN,BUN 8 mg/dL (7.0-18.0); CALCIUM 9.5 mg/dL (8.5-10.1); CARBON DIOXIDE,CO2 24.4 mmol/L (21.0-32.0); CHLORIDE,CL 104 mmol/L (98-107); CREATINE KINASE,CK 83 U/L (26-308); CREATININE 0.8 mg/dL (0.6-1.0); EST CRCL DRUG DOSING (CG) 85.76 mL/min; ESTIMATED GFR 94 mL/min (>60); GLUCOSE RANDOM 108 mg/dL (74-106); POTASSIUM,K 3.3 mmol/L (3.5-5.1); PROTEIN TOTAL,TP 8.1 g/dL (6.4-8.2); SODIUM,NA 139 mmol/L (136-145)
[2024-09-20] MEDS: Sodium Chloride 0.9% 1,000 ML IV ONE (15:28)
[2024-09-20] MEDS: Potassium Chloride 20 MEQ Tab.ER PO ONE (16:11)
[2024-09-20 16:12] LABS: APPEARANCE,URINE CLEAR; BILIRUBIN,URINE NEGATIVE (NEGATIVE); GLUCOSE,URINE NEGATIVE (NEGATIVE); KETONES,URINE NEGATIVE (NEGATIVE); LEUKOCYTE ESTERASE,URINE NEGATIVE (NEGATIVE); NITRITE,URINE NEGATIVE (NEGATIVE); OCCULT BLOOD,URINE NEGATIVE (NEGATIVE); PH,URINE 6.5 (5.0-8.0); PROTEIN,URINE NEGATIVE (NEGATIVE); UROBILINOGEN,URINE 0.2 EU/dL (<2.0)
[2024-09-20 16:13] LABS: COLOR,URINE STRAW
[2024-09-20 16:22] LABS: AMPHETAMINES SCREEN, URINE NEGATIVE (CUTOFF=500); BARBITURATE SCREEN,URINE NEGATIVE (CUTOFF=200); BENZODIAZEPINES SCREEN,URINE NEGATIVE (CUTOFF=150); BUPRENORPHINE SCREEN,URINE NEGATIVE (CUTOFF=10); METHADONE SCREEN, URINE NEGATIVE (CUTOFF=200); METHAMPHETAMINES SCREEN, URINE NEGATIVE (CUTOFF=500); OXYCODONE SCREEN,URINE NEGATIVE (CUT0FF=100); PCP SCREEN,URINE NEGATIVE (CUTOFF=25); THC SCREEN,URINE 20 NG/ML NEGATIVE (CUTOFF=50)
[2024-09-20] MEDS: Iopamidol 755 Mg/ML 100 ML Bottle IVPUSH ONE (16:55)
[2024-09-20 17:13] VITALS: BP 115/54; PULSE 72
== END 2024-09-20 17:10 | disposition home or self-care (01) ==
LOC: MW.ED 14:28
DX: R53.83 Other fatigue (principal); Z75.8 Other problems related to medical facilities and other health care; I10 Essential (primary) hypertension; Z91.040 Latex allergy status
CPT/HCPCS: 36415; 70450; 70496; 70498; 71045; 80053; 80305; 81003; 82550; 82947; 83735; 84484; 85025; 85379; 85610; 85730; 87428; 93005; 96360; 99285; A9270; J7030; Q9967

== ENCOUNTER 2024-12-22 06:29 | Emergency (ER) | payer BC ==
[2024-12-22] MEDS ORDERED: Sodium Chloride 0.9% 10 ML Syringe FLUSH PRN (07:28)
[2024-12-22 08:00] LABS: BASOPHILS ABSOLUTE AUTO 0.09 K/uL (0.00-0.20); BASOPHILS PERCENT AUTO 0.7 % (0.0-1.0); EOSINOPHILS PERCENT AUTO 0.7 % (0.0-6.0); HEMATOCRIT 37.2 % (37.0-47.0); HEMOGLOBIN 13.1 g/dL (12.0-16.0); IMMATURE GRAN ABSOLUTE AUTO 0.06 K/uL (0.00-0.05); IMMATURE GRAN PERCENT AUTO 0.4 % (0.0-0.4); LYMPHOCYTES ABSOLUTE AUTO 2.48 K/uL (1.00-4.80); LYMPHOCYTES PERCENT AUTO 18.2 % (24.0-44.0); MEAN CORPUSCULAR HEMOGLOBIN 32.5 pg (28.0-32.0); MEAN CORPUSCULAR HGB CONC 35.2 g/dL (32.0-36.0); MEAN CORPUSCULAR VOLUME 92.3 fL (83.0-99.0); MEAN PLATELET VOLUME 8.7 fL (9.4-12.3); MONOCYTES ABSOLUTE AUTO 0.96 K/uL (0.00-0.80); NEUTROPHILS ABSOLUTE AUTO 9.95 K/uL (1.80-7.70); PLATELET COUNT,PLT 295 K/uL (150-400); RED BLOOD CELL COUNT 4.03 M/uL (4.10-5.30); WHITE BLOOD CELL COUNT,WBC 13.64 K/uL (3.9-11.3)
[2024-12-22] MEDS: Sodium Chloride 0.9% 1,000 ML IV ONE (08:15)
[2024-12-22 08:27] LABS: A/G RATIO 0.8 (0.9-1.6); ALBUMIN 3.3 g/dL (3.4-5.0); BILIRUBIN TOTAL 0.8 mg/dL (0.2-1.0); CALCIUM 8.8 mg/dL (8.5-10.1); CARBON DIOXIDE,CO2 24.9 mmol/L (21.0-32.0); CREATININE 0.7 mg/dL (0.6-1.0); MAGNESIUM 2.1 mg/dL (1.8-2.4); POTASSIUM,K 3.5 mmol/L (3.5-5.1); PROTEIN TOTAL,TP 7.3 g/dL (6.4-8.2)
[2024-12-22] MEDS: Iopamidol 755 MG/ML 500 ML Multipack Bottle IVPUSH STA (08:37)
[2024-12-22 08:57] LABS: APPEARANCE,URINE CLEAR; BILIRUBIN,URINE NEGATIVE (NEGATIVE); COLOR,URINE YELLOW; GLUCOSE,URINE NEGATIVE (NEGATIVE); KETONES,URINE TRACE mg/dL (NEGATIVE); LEUKOCYTE ESTERASE,URINE NEGATIVE (NEGATIVE); NITRITE,URINE NEGATIVE (NEGATIVE); OCCULT BLOOD,URINE NEGATIVE (NEGATIVE); PH,URINE 6.5 (5.0-8.0); PROTEIN,URINE NEGATIVE (NEGATIVE); UROBILINOGEN,URINE 0.2 EU/dL (<2.0)
[2024-12-22 09:57] VITALS: BP 111/55; PULSE 84
[2024-12-22] MEDS: metroNIDAZOLE 250 MG Tab PO ONE (09:58)
[2024-12-22] MEDS: Ciprofloxacin 500 MG Tab PO ONE (09:58)
== END 2024-12-22 10:05 | disposition home or self-care (01) ==
LOC: MW.ED 06:29
DX: K57.32 Diverticulitis of large intestine without perforation or abscess without bleeding (principal); I10 Essential (primary) hypertension; Z91.040 Latex allergy status; Z79.899 Other long term (current) drug therapy; Z79.02 Long term (current) use of antithrombotics/antiplatelets
CPT/HCPCS: 36415; 74177; 80053; 81003; 81025; 83605; 83690; 83735; 85025; 99284; A9270; J7030; Q9967; 99283

== ENCOUNTER 2025-03-18 20:16 | Emergency (ER) | payer BC ==
[2025-03-18] MEDS: Alum Hydrox/Mag Hydrox/Simeth 15 ML, Lidocaine 2% 5 ML PO ONE (20:46)
[2025-03-18] MEDS: Sodium Chloride 0.9% 1,000 ML IV ONE (20:59)
[2025-03-18 21:04] LABS: BASOPHILS ABSOLUTE AUTO 0.08 K/uL (0.00-0.20); BASOPHILS PERCENT AUTO 0.8 % (0.0-1.0); EOSINOPHILS PERCENT AUTO 2.1 % (0.0-6.0); HEMATOCRIT 39.5 % (37.0-47.0); HEMOGLOBIN 14.3 g/dL (12.0-16.0); IMMATURE GRAN ABSOLUTE AUTO 0.05 K/uL (0.00-0.05); IMMATURE GRAN PERCENT AUTO 0.5 % (0.0-0.4); LYMPHOCYTES ABSOLUTE AUTO 3.61 K/uL (1.00-4.80); LYMPHOCYTES PERCENT AUTO 37.8 % (24.0-44.0); MEAN CORPUSCULAR HEMOGLOBIN 32.7 pg (28.0-32.0); MEAN CORPUSCULAR HGB CONC 36.2 g/dL (32.0-36.0); MEAN CORPUSCULAR VOLUME 90.4 fL (83.0-99.0); MEAN PLATELET VOLUME 8.5 fL (9.4-12.3); MONOCYTES ABSOLUTE AUTO 0.64 K/uL (0.00-0.80); MONOCYTES PERCENT AUTO 6.7 % (0.0-8.0); NEUTROPHILS ABSOLUTE AUTO 4.96 K/uL (1.80-7.70); NEUTROPHILS PERCENT AUTO 52.1 % (41.0-71.0); PLATELET COUNT,PLT 356 K/uL (150-400); RED BLOOD CELL COUNT 4.37 M/uL (4.10-5.30); WHITE BLOOD CELL COUNT,WBC 9.54 K/uL (3.9-11.3)
[2025-03-18 21:27] LABS: D-DIMER QUANTITATIVE 0.21 mg/L FEU (0.00-0.50); INR 0.97 (0.86-1.11); PTT,PARTIAL THROMBOPLSTIN TIME 25.1 SEC (23.9-30.7)
[2025-03-18 21:31] LABS: A/G RATIO 1.1 (0.9-1.6); ALANINE AMINOTRANSFERASE,ALT 59 IU/L (14-63); ALBUMIN 3.8 g/dL (3.4-5.0); ALKALINE PHOSPHATASE 71 U/L (46-116); ASPARTATE AMNIOTRANSFERASE,AST 22 IU/L (15-37); BILIRUBIN TOTAL 0.3 mg/dL (0.2-1.0); BLOOD UREA NITROGEN,BUN 12 mg/dL (7.0-18.0); CALCIUM 9.4 mg/dL (8.5-10.1); CARBON DIOXIDE,CO2 27.4 mmol/L (21.0-32.0); CHLORIDE,CL 103 mmol/L (98-107); CREATININE 0.8 mg/dL (0.6-1.0); ESTIMATED GFR 94 mL/min (>60); GLUCOSE RANDOM 98 mg/dL (74-106); LIPASE 35 U/L (16-77); POTASSIUM,K 3.7 mmol/L (3.5-5.1); PROTEIN TOTAL,TP 7.4 g/dL (6.4-8.2); SODIUM,NA 138 mmol/L (136-145)
[2025-03-18] MEDS: Sucralfate 1 GM Tab PO ONE (21:42)
[2025-03-18] MEDS: Pantoprazole 40 MG in Sodium Chloride 0.9% 10 ML IVPUSH ONE (21:42)
[2025-03-18 22:03] VITALS: BP 108/72; PULSE 88
== END 2025-03-18 22:01 | disposition home or self-care (01) ==
LOC: MW.ED 20:16
DX: K21.9 Gastro-esophageal reflux disease without esophagitis (principal); I10 Essential (primary) hypertension; Z91.040 Latex allergy status; Z79.899 Other long term (current) drug therapy; Z75.3 Unavailability and inaccessibility of health-care facilities
CPT/HCPCS: 36415; 80053; 83690; 83735; 84484; 85025; 85379; 85610; 85730; 93005; 93010; 96361; 96374; 99284; 99285-25; A9270-GY; J2470; J7030

== ENCOUNTER 2025-04-15 10:40 | Emergency (ER) | payer BC ==
[2025-04-15] MEDS ORDERED: Sodium Chloride 0.9% 2.5 ML Syringe FLUSH PRN (11:04)
[2025-04-15] MEDS ORDERED: Sodium Chloride 0.9% 10 ML Syringe FLUSH PRN (11:04)
[2025-04-15 11:11] LABS: BASOPHILS ABSOLUTE AUTO 0.06 K/uL (0.00-0.20); BASOPHILS PERCENT AUTO 0.8 % (0.0-1.0); EOSINOPHILS ABSOLUTE AUTO 0.13 K/uL (0.00-0.45); EOSINOPHILS PERCENT AUTO 1.8 % (0.0-6.0); IMMATURE GRAN ABSOLUTE AUTO 0.02 K/uL (0.00-0.05); IMMATURE GRAN PERCENT AUTO 0.3 % (0.0-0.4); LYMPHOCYTES ABSOLUTE AUTO 3.31 K/uL (1.00-4.80); LYMPHOCYTES PERCENT AUTO 45.4 % (24.0-44.0); MEAN PLATELET VOLUME 8.4 fL (9.4-12.3); MONOCYTES ABSOLUTE AUTO 0.65 K/uL (0.00-0.80); MONOCYTES PERCENT AUTO 8.9 % (0.0-8.0); NEUTROPHILS ABSOLUTE AUTO 3.12 K/uL (1.80-7.70); NEUTROPHILS PERCENT AUTO 42.8 % (41.0-71.0); NRBC ABSOLUTE 0.00 K/uL (0.00-0.02); NRBC PERCENT 0.0 /100WBC (0.0-0.2); PLATELET COUNT,PLT 337 K/uL (150-400); RED BLOOD CELL COUNT 4.43 M/uL (4.10-5.30); WHITE BLOOD CELL COUNT,WBC 7.29 K/uL (3.9-11.3)
[2025-04-15] MEDS: Ondansetron 4 MG/2 ML SDV IVPUSH ONE (11:44)
[2025-04-15 11:45] LABS: APPEARANCE,URINE CLEAR; GLUCOSE,URINE NEGATIVE (NEGATIVE); OCCULT BLOOD,URINE NEGATIVE (NEGATIVE)
[2025-04-15 11:49] LABS: A/G RATIO 1.1 (0.9-1.6); ALANINE AMINOTRANSFERASE,ALT 83.0 IU/L (14-63); ASPARTATE AMNIOTRANSFERASE,AST 29.0 IU/L (15-37); BILIRUBIN TOTAL 0.6 mg/dL (0.2-1.0); BLOOD UREA NITROGEN,BUN 9.0 mg/dL (7.0-18.0); CARBON DIOXIDE,CO2 22.1 mmol/L (21.0-32.0); CHLORIDE,CL 103.0 mmol/L (98-107); CREATININE 0.8 mg/dL (0.6-1.0); EST CRCL DRUG DOSING (CG) 65.8 mL/min; GLUCOSE RANDOM 138.0 mg/dL (74-106); POTASSIUM,K 3.6 mmol/L (3.5-5.1); PROTEIN TOTAL,TP 7.6 g/dL (6.4-8.2); SODIUM,NA 138.0 mmol/L (136-145)
[2025-04-15 11:53] LABS: ESTIMATED GFR 94.0 mL/min (>60)
[2025-04-15] MEDS: Ketorolac 30 MG/ML SDV IVPUSH ONE (11:59)
[2025-04-15 12:35] LABS: PRO B-TYPE NATRIUR PEPT,BNPPRO 12 pg/mL (0-125)
[2025-04-15] MEDS: LORazepam 2 MG/ML SDV IVPUSH ONE (13:32)
[2025-04-15] MEDS: Iopamidol 755 MG/ML 500 ML Multipack Bottle IVPUSH STA (14:02)
[2025-04-15 15:11] VITALS: BP 131/70; PULSE 111
== END 2025-04-15 15:19 | disposition home or self-care (01) ==
LOC: MW.ED 10:40
DX: R10.11 Right upper quadrant pain (principal); F41.9 Anxiety disorder, unspecified; I10 Essential (primary) hypertension; Z91.040 Latex allergy status; Z79.899 Other long term (current) drug therapy; Z75.3 Unavailability and inaccessibility of health-care facilities
CPT/HCPCS: 36415; 72131; 74174; 80053; 81003; 81025; 83690; 83735; 83880; 84484; 85025; 96374; 96375; 99285; J1885; J2060; J2405; Q9967; 99283